=== PATIENT | female | born 1965 | race Caucasian/White ===

== ENCOUNTER → 2023-07-08 12:32 | Outpatient (REF) | payer OTHER, SELFPAY | LOC: HWRAD 12:32 | PROVIDERS: ATTENDING PHYSICIAN Physician Assistant Medical | DX: R09.A2 Foreign body sensation, throat (principal) | CPT/HCPCS: 76536 ==

== ENCOUNTER 2024-01-10 04:39 | Observation (INO) | payer BC, SELFPAY ==
[2024-01-10 01:48] VITALS: BP 194/99
--- NOTE | 2024-01-10 02:16 | ED.GENMED ---
History of Present Illness
<OFELIA Medina (Lenka) - Last Filed: 01/10/24 02:49>
General
Chief Complaint: Abdominal Pain
Source: patient
Exam Limitations: none
Time Seen by Provider: 01/10/24 02:13
Nursing documentation reviewed up to this point in time: agreed with
History of Present Illness
History of Present Illness:
Pt is a 58yo female with PMHx of HTN/HLD and cholelithiasis who presents to the ED with sudden onset RUQ pain at 1900 (01/08). The pain with constant, severe P that radiates across her upper quadrants to the left side and to her back. Worse when
supine, improved with sitting leaning forward. Pain with inspiration. Endorses chills, NBNB emesis, and watery non-bloody stool. Took 2 Advil and Tums at 2000 tonight with no relief of sx. States she feels 'like there is a lot of gas stuck in her
belly'. Has passed flatus since sx onset. No BROOKE, fevers, dysphagia, pelvic pain, constipation. She states she gets 'gallbladder attacks' regularly, unsure what official diagnosis was at previous evaluations, but believes she has gallstones. Last
'gallbladder attack' in October 2023.
No surgical abdominal history.
Past History
<OFELIA Medina (Lenka) - Last Filed: 01/10/24 02:49>
Past History
ED Past Medical History: GERD, HTN and Hypercholesterolemia
ED Past Surgical History: Other (Breast tumor removed)
Social History
Tobacco: Former smoker
Alcohol: Occasional
Drug: None
Personal:
Living: with family
Employment: Employed
Phy Exam
<OFELIA Medina (Lenka) - Last Filed: 01/10/24 02:49>
General Physical Exam
General Presentation: severe distress (pt leaning forward sitting in chair, taking shallow breaths, rocking back and forth)
General age: appears stated age
General Skin: warm and dry
General Habitus: normal
General Mental: alert
General Hydration: appears well hydrated
Cardiovascular Exam
Cardiovascular Exam: regular rate/rhythm, no edema, no gallop, no murmur and normal peripheral pulses
Pulmonary Exam
Pulmonary Exam: lungs clear, no respiratory distress, no rales, no rhonchi, no wheezing and no cough
Gastrointestinal Exam
Gastrointestinal Exam: normal bowel sounds, soft, tender and other (non-tympanic)
Palpation: left upper quadrant: No tenderness, left lower quadrant: Minimal tenderness, right upper quadrant: Moderate tenderness (inconclusive [place] sign) and right lower quadrant: Minimal tenderness
Neurological Exam
Neurological Exam: alert, oriented x3 and speech normal
Course
<OFELIA Medina (Lenka) - Last Filed: 01/10/24 02:49>
Orders/Labs/Results
Orders:
Orders
01/10/24 02:26
Urinalysis Reflex To Culture Urgent
US Abdomen Complete/Upper Urgent
Comment:
Reason For Exam: severe RUQ pain + chills, hx of gallstones
01/10/24 02:33
CBC/With Diff [Complete Blood Count/With Diff] Urgent
CMP [Comprehensive Metabolic Panel] Urgent
Lipase Urgent
PTT Urgent
Prothrombin Time Urgent
Troponin I Urgent
01/10/24 02:36
Ketorolac [Toradol] 15 mg .ROUTE .STK-MED ONE
01/10/24 02:39
Ketorolac [Toradol] 15 mg IV NOW STA
01/10/24 03:34
Morphine Sulfate 4 mg IV NOW STA
Ondansetron Injectable [Zofran] 4 mg IV NOW STA
Abnormal Lab Results
01/10/24
02:33
RBC 4.14 L 10^6/uL
(4.20-5.40)
Hct 34.2 L %
(37.0-47.0)
Absolute Neuts (auto) 7.4 H 10^3/uL
(1.4-6.5)
Absolute Lymphs (auto) 1.1 L 10^3/uL
(1.2-3.4)
Neutrophils % 80.8 H %
(42.2-75.2)
Lymphocytes % 12.1 L %
(20.5-51.1)
Glucose 149 H mg/dl
(70-99)
AST 137 H U/L
(14-36)
ALT 84 H U/L
(0-35)
01/10/24 02:33
01/10/24 02:33
Vital Signs
Initial and Last Documented VS:
Initial Vital Signs
Temp Pulse Resp BP Pulse Ox
97.4 F 66 26 194/99 100
01/10/24 01:48 01/10/24 01:48 01/10/24 01:48 01/10/24 01:48 01/10/24 01:48
Last Documented Vital Signs
Temp Pulse Resp BP Pulse Ox
97.4 F 66 26 194/99 100
01/10/24 01:48 01/10/24 01:48 01/10/24 01:48 01/10/24 01:48 01/10/24 01:48
<Zack Patel, DO - Last Filed: 01/10/24 03:41>
Orders/Labs/Results
Orders:
Orders
01/10/24 02:26
Urinalysis Reflex To Culture Urgent
US Abdomen Complete/Upper Urgent
Comment:
Reason For Exam: severe RUQ pain + chills, hx of gallstones
01/10/24 02:33
CBC/With Diff [Complete Blood Count/With Diff] Urgent
CMP [Comprehensive Metabolic Panel] Urgent
Lipase Urgent
PTT Urgent
Prothrombin Time Urgent
Troponin I Urgent
01/10/24 02:36
Ketorolac [Toradol] 15 mg .ROUTE .STK-MED ONE
01/10/24 02:39
Ketorolac [Toradol] 15 mg IV NOW STA
01/10/24 03:34
Morphine Sulfate 4 mg IV NOW STA
Ondansetron Injectable [Zofran] 4 mg IV NOW STA
Abnormal Lab Results
01/10/24
02:33
RBC 4.14 L 10^6/uL
(4.20-5.40)
Hct 34.2 L %
(37.0-47.0)
Absolute Neuts (auto) 7.4 H 10^3/uL
(1.4-6.5)
Absolute Lymphs (auto) 1.1 L 10^3/uL
(1.2-3.4)
Neutrophils % 80.8 H %
(42.2-75.2)
Lymphocytes % 12.1 L %
(20.5-51.1)
Glucose 149 H mg/dl
(70-99)
AST 137 H U/L
(14-36)
ALT 84 H U/L
(0-35)
01/10/24 02:33
01/10/24 02:33
Vital Signs
Initial and Last Documented VS:
Initial Vital Signs
Temp Pulse Resp BP Pulse Ox
97.4 F 66 26 194/99 100
01/10/24 01:48 01/10/24 01:48 01/10/24 01:48 01/10/24 01:48 01/10/24 01:48
Last Documented Vital Signs
Temp Pulse Resp BP Pulse Ox
97.4 F 66 26 194/99 100
01/10/24 01:48 01/10/24 01:48 01/10/24 01:48 01/10/24 01:48 01/10/24 01:48
<OFELIA Medina (Lenka) - Last Filed: 01/10/24 02:49>
MDM/Problems Addressed
Differential Diagnosis Includes:
DDx: pancreatitis vs acute cholecystitis vs ascending cholangitis
Pt with hx of cholelithiasis and intermittent RUQ pain, last episode 10/2023. Presenting tonight with severe RUQ pain radiating to back and to the sternal/epigastric region. States it is worse than she has had before. Pain worse when supine, improved
with sitting up leaning forward. Endorses N/V/D. No prior abdominal surgeries.
Will order CBC/CMP, lipase, and abdominal U/S.
Chronic conditions affecting care: HTN
<OFELIA Medina (Lenka) - Last Filed: 01/10/24 02:49>
*Critical Care Note
Total Time (30-74mins, 75-104mins- exclusive of procedures): Not Applicable
ED Attending Note
<OFELIA Medina (Lenka) - Last Filed: 01/10/24 02:49>
-
Portions of this chart may have been created with voice recognition software.� Occasional wrong word or��sound alike� substitutions may have occurred due to the inherent limitations of voice recognition software.
<Zack Patel DO - Last Filed: 01/10/24 03:41>
ED Attending Note
Patient seen and examined by attending physician: Yes
ED Attending Note:
This a pleasant 58-year-old female presents with right upper quadrant pain that began around 7 PM. She states that the pain has been constant and radiates across her upper quadrants. Patient does have a history of gallbladder attacks. She states
that this is very similar but 'more severe '. Patient knows that she has gallstones. She states that when she had her last gallbladder attack it did not last as long. She still has her gallbladder. He denies any blood thinners. Denies any other
symptoms. Initially did not wish to have narcotic pain medications but due to the unrelenting pain especially after Toradol she agreed to have morphine. Patient was seen in conjunction with the PA student. I have reviewed and agree with the
history and treatment plan presented. On my independent physical exam, patient is awake, alert, and oriented x3 right upper quadrant pain to palpation consistent with Gilbert sign. Negative McBurney's point tenderness. Moves all 4 extremities.
She is able to ambulate around the department.
Right upper quadrant ultrasound
Comparison: 03/09/2023
IMPRESSION:
Cholelithiasis with several mobile gallstones in gallbladder
No appreciable gallbladder wall thickening or pericholecystic fluid
Positive sonographic Gilbert's sign per report
CBD is dilated measuring up to 15 mm in diameter(previously measured 6 mm)
No ductal stones visualized. However, the distal duct/pancreatic head region not well evaluated with this exam
Correlate with biochemical parameters. If concern for choledocholithiasis, suggest further evaluation with MRCP
Visualized pancreas and liver appear normal
Right kidney appears normal
Report faxed directly at 3:18 AM ET
Given the patient has elevated LFTs, she will be brought into the hospital for further testing.
Discharge Plan
Departure
Patient Disposition: Admit
Date of Disposition: 01/10/24
Time of Disposition: 03:39
Admit to: Telemetry
Presentation/result/management discussed w/ accepting MD/DO: Hospitalist
Condition: Good
Discharge Problem:
Biliary colic, Transaminitis, Common bile duct dilatation
Prescriptions:
No Action
meloxicam 15 MG tablet
15 mg PO
methylprednisolone 32 MG tablet
32 mg PO
Patient Comments:
pre dosing 32 mg also at 2200 05/30/19
alprazolam 0.25 MG tablet
0.25 mg PO Q8HPRN PRN (Reason: anxiety)
vitamin B complex [Ultra B-100 Complex] 1 EACH tablet
1 tab PO DAILY
multivitamin with folic acid [Tab-A-Grupo] 1 TABLET tablet
1 tab PO DAILY
Vitamin C
1 tab PO DAILY
Vitamin D
1 tab PO DAILY
Referrals:
Jocelyn Garay PA-C [Family Provider] -
Interventions
Interventions:
*Risk Screen - Suicide Last Done: 01/10/24 01:48
*Neglect/Abuse Screening Last Done: 01/10/24 01:48
Discharge Date and Time
Print Language: INDONESIAN
[2024-01-10 02:40] LABS: % Basophils 0.1 % (0-2); % Eosinophils 1.8 % (0-6); % Immature Granulocytes 0.3 % (0-0.5); % Lymphocytes 12.1 % (20.5-51.1); % Monocytes 4.9 % (1.7-9.3); % Neutrophils 80.8 % (42.2-75.2); Absolute Eosinophils 0.2 10^3/uL (0-0.7); Absolute Lymphocytes 1.1 10^3/uL (1.2-3.4); Absolute Monocytes 0.5 10^3/uL (0.1-0.6); Absolute Neutrophils 7.4 10^3/uL (1.4-6.5); Hematocrit 34.2 % (37.0-47.0); Hemoglobin 12.1 g/dL (12.0-16.0); Mean Corp Hgb Conc. 35.4 g/dL (33.0-37.0); Mean Corpuscular Hgb 29.2 pg (27.0-31.0); Mean Corpuscular Volume 82.6 fL (81.0-99.0); Mean Platelet Volume 8.9 fL (7.4-10.4); Nucleated Red Blood Cells % 0 %; Platelet Count 177 10^3/uL (130-400); Red Blood Cell Count 4.14 10^6/uL (4.20-5.40); White Blood Cell Count 9.2 10^3/uL (4.8-10.8)
[2024-01-10] MEDS: TORADOL 15 MG IV (02:40)
[2024-01-10 02:58] LABS: APTT 28.4 Sec (23.4-35.0); INR 0.97; PT 12.7 Sec (11.4-14.6)
[2024-01-10 03:23] LABS: ALT (SGPT) 84 U/L (0-35); AST (SGOT) 137 U/L (14-36); Albumin 4.4 g/dl (3.5-5.0); Alkaline Phosphatase 91 U/L (38-126); Blood Urea Nitrogen 17 mg/dl (7-17); Calcium 9.8 mg/dl (8.4-10.2); Carbon Dioxide 26 mmol/L (22-30); Chloride 102 mmol/L (98-107); Glucose 149 mg/dl (70-99); Lipase 104 U/L (23-300); Potassium 4.5 mmol/L (3.5-5.1); Sodium 136 mmol/L (135-145); Total Bilirubin 0.8 mg/dl (0.2-1.3); Total Protein 6.9 g/dl (6.3-8.2); eGFR > 60.00
[2024-01-10] MEDS: MORPHINE SULFATE 4 MG IV (03:50)
[2024-01-10] MEDS: ZOFRAN 4 MG IV (03:51)
[2024-01-10 03:52] VITALS: BMI 36.4
[2024-01-10 03:57] VITALS: BP 163/75
--- NOTE | 2024-01-10 04:20 | HPS.HSE ---
Family Physician
-
Family Physician: Jocelyn Garay
Chief Complaint
-
RUQ pain ? GB attack
History of Present Illness
58F HX HTN/ HLD and cholelithiasis seen at ER for RUQ pain
- sudden onset , radiated across the upper abdomen and back
- Associated with NBNB vomiting
- 2 Advil and Tums at 2000 tonight with no relief of pain
- HX Cholithisis and frequent GB attack
ROS
No BROOKE, fevers, dysphagia, pelvic pain, constipation.
Medical History
Past Medical History
Past Medical History: Reports GERD, HTN, Hypercholesterolemia and Psychiatric (anxiety )
Past Surgical History: Reports Other (Breast tumor removed))
Social History
Tobacco: Former Smoker
Alcohol: Occasional
Drug: None
Personal:
Living: With Family
Family History
Family History: Not pertinent
Allergies / Home Medications
Allergies reflects when Allergies were last updated in [employer].
Home Medications with original date entered in [employer]
Allergy/Medication List:
Allergies
Allergy/AdvReac Type Severity Reaction Status Date / Time
Hjspeda-GYJ-UgP Reductase Allergy Intermediate Unknown Verified 01/10/24 01:50
Inhibitor
[Plbliup-Emk-Vbn Reductase
Inhibitor]
cefuroxime axetil Allergy Swelling Verified 01/10/24 01:50
[From Ceftin]
IV contrast dye Allergy Anaphylaxis Uncoded 01/10/24 01:50
Home Medications
Vitamin C 1 tab PO DAILY 05/31/19
Vitamin D 1 tab PO DAILY 05/31/19
alprazolam 0.25 mg tablet 0.25 mg PO Q8HPRN PRN anxiety 05/31/19
vitamin B complex (Ultra B-100 Complex tablet) 1 tab PO DAILY 05/31/19
diltiazem HCl 120 mg tablet,extended release 24 hr 120 mg PO DAILY 01/10/24
evolocumab 140 mg/mL subcutaneous syringe (Repatha Syringe) 140 mg SC Q2W 01/10/24
fexofenadine 180 mg tablet 180 mg PO DAILY 01/10/24
Review of Systems
-
Constitutional: Reports No Symptoms
EENT: Reports No Symptoms
Respiratory: Reports No Symptoms
Cardiac: Reports No Symptoms
Abdomen/GI: Reports See HPI, Abdominal Pain and Nausea
: Reports No Symptoms
Musculoskeletal: Reports No Symptoms
Skin: Reports No Symptoms
Neurological: Reports No Symptoms
Endocrine: Reports No Symptoms
Hematologic/Lymphatic: Reports No Symptoms
Psych: Reports No Symptoms
Physical Exam
Vital Signs
Vital Signs
Temp Pulse Resp BP Pulse Ox
97.4 F 66 26 163/75 96
01/10/24 01:48 01/10/24 03:57 01/10/24 01:48 01/10/24 03:57 01/10/24 03:57
Physical Exam
General: Well Developed, Well Nourished and No Apparent Distress
HEENT: NormoCephalic, Moist mucous membranes and Atraumatic
Respiratory: Clear
Cardiac: S1/S2 and Regular Rhythm; No Murmur or Rub
GI: Soft, Non Distended and Normal Bowel Sounds; No Organomegaly
Rectal: Deferred by Provider
Musculoskeletal: No Clubbing, No Cyanosis and No Edema
Skin: No Rash
Neuro: Nonfocal/grossly intact
Laboratory Results
-
01/10/24 02:33
01/10/24 02:33
Laboratory Results
PT 12.7 Sec (11.4-14.6) 01/10/24 02:33
INR 0.97 01/10/24 02:33
APTT 28.4 Sec (23.4-35.0) 01/10/24 02:33
Total Bilirubin 0.8 mg/dl (0.2-1.3) 01/10/24 02:33
AST 137 U/L (14-36) H 01/10/24 02:33
ALT 84 U/L (0-35) H 01/10/24 02:33
Alkaline Phosphatase 91 U/L (38-126) 01/10/24 02:33
Troponin I 0.020 ng/ml 01/10/24 02:33
Lipase 104 U/L (23-300) 01/10/24 02:33
Data Reviewed
-
Ultrasound: Report Reviewed by me
Lab Data: Labs Reviewed by me
Impression/Plan
-
Reviewed VS: afebrile BP 160/75 RR 26
Data
nl CBC
nl BMP
nl TB
AST 137
ALT 85
US abdomen
- several mobile GS
- No GBWT . No PCF
- Dilated CBD up to 155
- No ductal stones
NEG TPNI
ASSESSMENT & PLAN
Acute biliary colic
Cholelithiasis with several mobile stones but No GBWT . No PCF
Dilated CBD up to 15 mm
- NPO and IVF
- narcotic PRN
- Hold off ABx
- MRCP in AM
- GS consult
Known HX
GERD
benign HTN
Hypercholesterolemia
Anxiety
- cont all OP Meds
DVT Px: SCD
Code: Full
Obs MS
[2024-01-10 04:45] LABS: Urine Albumin Negative (Neg - Trace); Urine Bilirubin Negative (Negative); Urine Character Clear (Clear); Urine Color Yellow; Urine Glucose Negative (Negative); Urine Ketone Negative (Negative); Urine Leukocyte Negative (Negative); Urine Nitrite Negative (Negative); Urine Occult Blood Negative (Negative); Urine Specific Gravity 1.005 (<1.030); Urine Urobilinogen Negative (Neg - 1+)
[2024-01-10 05:42] VITALS: BP 163/73; BMI 37.4
[2024-01-10] MEDS: NSS 1000 IV (06:30)
[2024-01-10 07:55] VITALS: BP 144/71
[2024-01-10] MEDS: CARDIZEM CD 120 MG PO (09:31)
--- NOTE | 2024-01-10 09:50 | CON.GS ---
Documented by User: KARINA Castro 01/10/24 10:05
Medical History
-
Chief Complaint: abdominal pain
History of Present Illness:
Ms Garcia is a 58 yo female with a history of HTN, HLD and lumpectomy who presents with RUQ pain radiating into her pack which began around 7pm last night a few hours after eating a large salad. She had some nausea and vomiting initially with pain.
She passed a loose BM. She tried advil and tums without relief in symptoms and presented through the ED for evaluation. She has had episodes of similar pain in the past which were short lived, the last being in October of this year. Currently, she is
pain free and without nausea or vomiting. She had some chills initially but is currently without chills or fever.
Past Medical History
Past Medical History: GERD, HTN and Hypercholesterolemia
Past Surgical History: Other (Lumpectomy)
Social History
Tobacco: Former Smoker
Alcohol: Occasional
Drug: None
Personal:
Employment: Employed (Nurse)
Family History
Family History: Reviewed & Not Pertinent
Allergies / Home Medications
Allergy/AdvReac Type Severity Reaction Status Date / Time
Wkwxehj-ARM-QxH Reductase Allergy Intermediate Unknown Verified 01/10/24 01:50
Inhibitor
[Jbvmjvo-Vzr-Flh Reductase
Inhibitor]
cefuroxime axetil Allergy Swelling Verified 01/10/24 01:50
[From Ceftin]
IV contrast dye Allergy Anaphylaxis Uncoded 01/10/24 01:50
�Medication �Instructions �Recorded �Confirmed �Type
Vitamin C 1 tab PO DAILY 05/31/19 01/10/24 History
Vitamin D 1 tab PO DAILY 05/31/19 01/10/24 History
alprazolam 0.25 mg tablet 0.25 mg PO Q8HPRN PRN anxiety 05/31/19 01/10/24 History
vitamin B complex (Ultra B-100 1 tab PO DAILY 05/31/19 01/10/24 History
Complex tablet)
diltiazem HCl 120 mg 120 mg PO DAILY 01/10/24 01/10/24 History
tablet,extended release 24 hr
evolocumab 140 mg/mL subcutaneous 140 mg SC Q2W 01/10/24 01/10/24 History
syringe (Repatha Syringe)
fexofenadine 180 mg tablet 180 mg PO DAILY 01/10/24 01/10/24 History
Review of Systems
-
History Source: Patient
All other systems: Negative unless noted
A 10 point review of systems was completed, and was negative except as per HPI.
Physical Exam
Vital Signs
Temp Pulse Resp BP Pulse Ox
98.3 F 55 18 144/71 96
01/10/24 07:55 01/10/24 07:55 01/10/24 07:55 01/10/24 07:55 01/10/24 07:55
01/09/24 01/10/24 01/11/24
06:59 06:59 06:59
Actual Weight 101.86 kg
Body Mass Index (BMI) 37.4
Lab Results
01/10/24 02:33
01/10/24 02:33
WBC 9.2 10^3/uL (4.8-10.8) 01/10/24 02:33
Hgb 12.1 g/dL (12.0-16.0) 01/10/24 02:33
Hct 34.2 % (37.0-47.0) L 01/10/24 02:33
Plt Count 177 10^3/uL (130-400) 01/10/24 02:33
Abs Immat Gran (auto) 0.0 10^3/uL (0-0.05) 01/10/24 02:33
Neutrophils % 80.8 % (42.2-75.2) H 01/10/24 02:33
Physical Exam
General: Well Developed and Well Nourished
HEENT: Normocephalic and Moist Mucous Membranes
GI: Soft, Non Tender and Non Distended
Skin: Warm and Dry
Neuro: Awake, Alert and AO x 3
Psych: Calm
Data Reviewed
-
Ultrasound: Image Personally Visualized and interpreted, Report Reviewed by me, Discussed with Physician and Discussed with Patient
Labs: Labs Reviewed by me, Discussed with Physician and Discussed with Patient
Old Records: Reviewed
Assessment / Plan
-
58 yo female with a h/o HTN, GERD with prior episodes of biliary colic who presents with RUQ pain with initial n/v that began after eating a large salad and persisted. Early this am she received morphine in the ED with resolution of pain which has
not returned. US with gallstones present and biliary ductal dilation and possible cholecystitis although on exam, she is currently without pain/symptoms suggestive of episodic biliary colic. Labs without leukocytosis. She has been afebrile.
Bilirubin is normal with mild transaminitis noted. Afebrile with stable vital signs.
--Given resolution of pain will do PO challenge
--Given normal bilirubin will hold off on MRCP at this point
--LFT's later today
--If pain recurs will plan lap silvia this admission vs scheduled as an outpatient if continues without symptoms
--Will transition patient to surgical service
--Continue off abx
Tentative d/c later today if tolerating diet without return of pain

Documented by User: Gonzalo Black MD 01/10/24 11:46
Assessment / Plan
-
58 yo female with a h/o HTN, GERD with prior episodes of biliary colic who presents with RUQ pain with initial n/v that began after eating a large salad and persisted. Early this am she received morphine in the ED with resolution of pain which has
not returned. US with gallstones present and biliary ductal dilation and possible cholecystitis although on exam, she is currently without pain/symptoms suggestive of episodic biliary colic. Labs without leukocytosis. She has been afebrile.
Bilirubin is normal with mild transaminitis noted. Afebrile with stable vital signs.
--Given resolution of pain will do PO challenge
--Given normal bilirubin will hold off on MRCP at this point
--LFT's later today
--If pain recurs will plan lap silvia this admission vs scheduled as an outpatient if continues without symptoms
--Will transition patient to surgical service
--Continue off abx
Tentative d/c later today if tolerating diet without return of pain
I saw and examined the patient independently.
The Mechanical Systems Engineer's note was reviewed and I agree with the note, assessment and plan except where noted below.
Comment: This is a 58-year-old female with known biliary colic who presents with similar symptoms though somewhat more intense than prior that has now resolved without antibiotics. No leukocytosis, mild transaminitis but no elevated bilirubin. Her
exam is completely benign.
Will trial of diet and plan for DC later today.
Will recheck LFTs to ensure that they are not uptrending.
Cancel MRCP.
Will plan for outpatient laparoscopic cholecystectomy, my office will call her to schedule this.
--- NOTE | 2024-01-10 10:21 | W.PN.HOSP.TC ---
Today's Communication/Plan
-
[facility] will take over the case, pigment presser will sign off
Assessment / Plan
Assessment / Plan
58yo F with anxiety, atopic d/o, HLD, HTN came with RUQ pain admitted with cholelithiasis and choledocholithiassis
A/P
#Cholelithiasis with concern for cholecystitis
#Choledocholithiasis
#Elevated transaminases 2/2 above
Patient asymptomatic next morning, possibly passed the stone, tolerated diet
[facility] cancelled MRCP - will take patient under their service, pigment presser will sign off
CIpro/Flagyl started
#Anxiety d/o
#Atopic d/o
#Essential HTN
cont home meds
DVT ppx SCDs
Full code
I have spent at least 37min reviewing chart, test results, communication with consultants and direct patient care
Anticipated Discharge: Within 24 hours
Subjective/Interval History
-
Date of Service: January 10, 2024
Objective Data
-
Labs:
Laboratory Results
01/10/24 01/10/24 01/10/24
02:33 06:00 14:00
WBC 9.2
Hgb 12.1
Hct 34.2 L
Plt Count 177
PT 12.7 Cancelled
INR 0.97 Cancelled
APTT 28.4
Sodium 136
Potassium 4.5
Chloride 102
Carbon Dioxide 26
BUN 17
Creatinine 1.0
Glucose 149 H
Calcium 9.8
Total Bilirubin 0.8 Pending
AST 137 H Pending
ALT 84 H Pending
Alkaline Phosphatase 91 Pending
Vital Signs:
Vital Signs
Temp Pulse Resp BP Pulse Ox
98.3 F 55 18 144/71 96
01/10/24 07:55 01/10/24 07:55 01/10/24 07:55 01/10/24 07:55 01/10/24 08:00
Review of Systems
-
All other systems: Reviewed and negative
Constitutional: Reports No Symptoms
Physical Exam
-
HEENT: Normocephalic
GI: Soft, Nontender and Nondistended
Psych: Calm
--- NOTE | 2024-01-10 10:26 | CM ---
Reviewed the chart notes and spoke with the patient at the bedside. The patient is admitted under observational status. Observational letter provided and explained. The patient had no questions with regards to the letter.
The patient resides alone in a two story home with one step to enter. The patient reports no DME/VN/SNF in the past. The patient confirmed her pharmacy of choice is the [facility]. continues to be available to
patient/family and is monitoring medical plan for needs at discharge.
Plan: Discharge to home when medically stable. No anticipated needs identified.
[2024-01-10 14:50] LABS: ALT (SGPT) 273 U/L (0-35); AST (SGOT) 324 U/L (14-36); Albumin 4.3 g/dl (3.5-5.0); Alkaline Phosphatase 97 U/L (38-126); Direct Bilirubin 0.3 mg/dl (0.0-0.4); Total Bilirubin 0.8 mg/dl (0.2-1.3); Total Protein 6.9 g/dl (6.3-8.2)
[2024-01-10 15:36] VITALS: BP 166/84
--- NOTE | 2024-01-10 17:00 | PTCARENOTE ---
pt tolerated clear liquid breakfast with no c/o abdominal discomfort or nausea. advanced diet for lunch to low fat. remains without return of pain. tolerated low fat dinner and discharged home w/sister.
== END 2024-01-10 17:11 | disposition home or self-care (01) ==
LOC: 2 SOUTH 04:39
PROVIDERS: Registered Nurse; ADMITTING PHYSICIAN Internal Medicine; ATTENDING PHYSICIAN Surgery; EMERGENCY PHYSICIAN Student in an Organized Health Care Education/Training Program; FAMILY PHYSICIAN Physician Assistant Medical
DX: K80.70 Calculus of gallbladder and bile duct without cholecystitis without obstruction (principal); R10.9 Unspecified abdominal pain; I10 Essential (primary) hypertension; E78.5 Hyperlipidemia, unspecified; R07.1 Chest pain on breathing; R11.2 Nausea with vomiting, unspecified; R60.9 Edema, unspecified; R68.83 Chills (without fever); R19.7 Diarrhea, unspecified; E78.00 Pure hypercholesterolemia, unspecified; K21.9 Gastro-esophageal reflux disease without esophagitis; R74.01 Elevation of levels of liver transaminase levels; K83.8 Other specified diseases of biliary tract; F41.9 Anxiety disorder, unspecified; Z88.8 Allergy status to other drugs, medicaments and biological substances; Z88.1 Allergy status to other antibiotic agents; Z87.891 Personal history of nicotine dependence
CPT/HCPCS: 76700; 80053; 80076; 81003; 83690; 84484; 85025; 85610; 85730; 96374; 96375; 99284; G0378

== ENCOUNTER 2024-01-18 06:50 | Day surgery (SDC) | payer OTHER, SELFPAY ==
[2024-01-18] VITALS (11 sets, daily range): BP systolic 141–169; BP diastolic 56–83; BMI 36.5
[2024-01-18] MEDS: TYLENOL 1000 MG PO (11:57)
--- NOTE | 2024-01-18 12:14 | W.SUR.PREOP ---
Pre-Operative Surgical Note
-
I have examined this patient prior to the performance of the scheduled procedure.
The patient's condition is unchanged from the time of the current History and
Physical and the patient is able to undergo the scheduled procedure.
--- NOTE | 2024-01-18 15:07 | W.IMMPOSTOP ---
Surgical Immed Post Op Note
-
Primary Surgeon: Gonzalo Black MD
Assisting Surgeon: None
Pre-op Diagnosis: Biliary colic
Post-op Diagnosis: Same
Procedure Performed: Laparoscopic cholecystectomy with cholangiogram
Anesthesia Type: General
Specimen / Cultures: Gallbladder and contents
Estimated Blood Loss: 3 cc
Complications: None
Operative Findings: Mildly inflamed gallbladder with some edema in the cystic triangle. Critical view of safety obtained prior to a cholangiogram which demonstrated no distal filling defects. Given the patient's history of allergy to IV contrast,
the patient was pretreated in the OR with Benadryl before using Omnipaque dye in a 50-50 mixture. There is some spillage of bile and small yellow cholesterol gallstones during the dissection of the gallbladder off of the fossa however these were
all suctioned up in the right upper quadrant was of flooded and irrigated until clear.
--- NOTE | 2024-01-18 15:19 | OR.RPT ---
Operative Report
Operative Report
Patient Name: Gail Garcia
: 1965
Date of Operation: 01/18/2024
Preoperative Diagnosis: Symptomatic Cholelithiasis
Postoperative Diagnosis: Same
Procedure(s):
Laparoscopic Cholecystectomy with Cholangiogram
Surgeon(s):
Dr. Black
[employer] Operations Manager(s):
LUIS CARLOS Mathias
Anesthesia: General
Estimated Blood Loss: 3 cc
Urine Output: None
Drains/Lines/Implants: None
Specimens:
1. Gallbladder and contents
HPI/Surgical Indications:
This is a 58 year old female who presents with abdominal pain. Exam, labs and imaging are consistent with symptomatic cholelithiasis. Risks/Benefits/Alternatives were discussed at length, and the patient agreed to proceed with surgery.
Operative Findings:
Mildly inflamed gallbladder with some edema in the cystic triangle. Critical view of safety obtained prior to a cholangiogram which demonstrated no distal filling defects. Given the patient's history of allergy to IV contrast, the patient was
pretreated in the OR with Benadryl before using Omnipaque dye in a 50-50 mixture. There is some spillage of bile and small yellow cholesterol gallstones during the dissection of the gallbladder off of the fossa however these were all suctioned up
in the right upper quadrant was of flooded and irrigated until clear.
Procedure Description:
The patient was brought to the Operating Room and placed in the supine position. IV antibiotics were infused and sequential compression devices were confirmed to be on. Following uneventful induction of general endotracheal anesthesia, an
orogastric tube was placed. The abdomen was prepped and draped in the usual sterile fashion. The abdomen was entered using a left subcostal Veress technique which required a single pass followed by a 5 mm right upper quadrant Optiview trocar.
Pneumoperitoneum to 15 mmHg pressure was obtained without difficulty and we confirmed that no injury had occurred during our entry. The patient was positioned in reverse trendelenberg and rotated with the right side up slightly. Two 5mm trocars were
then placed along the right subcostal margin, and a 12 mm port in the epigastrium. A locking grasping forceps was placed on the fundus of the gallbladder where it was then retracted cephalad and to the right. Using appropriate grasping instruments,
the peritoneum overlying the triangle of Calot was incised. The cystic duct/gallbladder junction was identified, dissected circumferentially. The cystic artery was identified medially and was dissected circumferentially. A critical view was
obtained. A clip was then placed on the cystic duct/gallbladder junction and an intraoperative cholangiogram performed using fluoroscopy, which showed good flow of dye into the duodenum. Given the patient's history of allergy with IV contrast, the
patient was pretreated with Benadryl prior to administration of the 50-50 mixture of Omnipaque dye. There were no intra- or extrahepatic bile duct filling defects. The biliary anatomy appeared somewhat irregular with some scalloping of the CBD.
Following completion of the cholangiogram, the catheter was removed. A clip was placed on the cystic duct and the duct was divided. The stump was then reinforced with a 0 PDS Endoloop. Two clips were placed proximally and one distally on the
cystic artery, and the artery was divided. Remaining soft tissue attachments of the gallbladder to the liver bed were then divided using electrocautery. A small rent was made during the dissection of the gallbladder with spillage of bile and some
small cholesterol/yellow gallstones these were suctioned immediately and the rent was closed with 2 clips before proceeding further with the dissection without incident. The gallbladder bed was inspected and excellent hemostasis was obtained. No
residual gallstones were seen. The gallbladder was extracted through the 12 mm trocar site using an endocatch bag. The abdomen was again irrigated and excellent hemostasis was assured. All remaining trocars were then removed and the
pneumoperitoneum was evacuated. The 12 mm trocar site was closed using a figure of 8 of 0 PDS. All trocar sites were closed at the skin level using 4-0 Monocryl followed by Dermabond. Overall, the patient tolerated the procedure well and was
taken to the Recovery Room postoperatively in stable condition.
I was the attending physician and performed the procedure with assistance from the TERRESTRIAL ECOLOGIST above. I was present for all portions of the case
Gonzalo Black MD
[2024-01-18] MEDS: ZOFRAN 4 MG IV (15:42)
[2024-01-18] MEDS: DILAUDID 0.25 MG IV ×2 (15:43→16:16)
[2024-01-18] MEDS: DILAUDID 0.5 MG IV (15:53)
== END 2024-01-18 18:04 | disposition home or self-care (01) ==
LOC: SDS 06:50
PROVIDERS: ATTENDING PHYSICIAN Surgery
DX: K80.10 Calculus of gallbladder with chronic cholecystitis without obstruction (principal)
CPT/HCPCS: 47563; 88304; 74300; 76000; A4300